=== PATIENT | male | born 1995 | race Two or more races ===

== ENCOUNTER → 2021-05-28 | Emergency (ER) | payer SELFPAY ==
[~2021-05-28] VITALS: Ht 180.3 cm; Wt 60.8 kg
--- NOTE | 2021-05-28 23:40 | NUR ---
PATIENT C/O LEFT SIDED CHEST PAIN. PATIENT STATED 8 x DAYS AGO HAD HIT CHEST ON EDGE OF TABLE, HAS HAD CHEST PAIN SINCE. PATIENT A/OX 4, RR EVEN AND UNLABORED, NO SOB NOTED. VSS, PATIENT CONNECTED TO MONITOR. WILL CONTINUE TO MONITOR.
--- NOTE | 2021-05-29 01:45 | NUR ---
PATIENT LEFT WITHOUT BEING SEEN BY
[2021-05-29 03:04] VITALS: BP 121/77
== END | disposition left against medical advice (07) ==
LOC: ER 23:01
DX: Z53.21 Procedure and treatment not carried out due to patient leaving prior to being seen by health care provider (principal); R07.89 Other chest pain
CPT/HCPCS: 71100-TC